=== PATIENT | female | born 2000 | race Caucasian/White ===

== ENCOUNTER 2020-01-17 07:51 | Day surgery (SDC) | payer OTHER, SELFPAY ==
[~2020-01-17] VITALS: Ht 157.5 cm; Wt 72.6 kg
[2020-01-17] MEDS ORDERED: fentaNYL citrate 0.05 MG/ML VIAL ONE ×2 (09:04→10:21)
[2020-01-17] MEDS ORDERED: LIDOCAINE 2% 100 MG/5 ML UJET TP ONE ×2 (09:04→10:21)
[2020-01-17] MEDS ORDERED: MIDAZOLAM 2 MG/2 ML VIAL ONE (10:21)
[2020-01-17] MEDS ORDERED: fentaNYL citrate 0.05 MG/ML VIAL IVP ONE ×2 (11:20→12:50)
== END 2020-01-17 11:50 | disposition home or self-care (01) ==
LOC: MDS 07:51 → MMU 07:52 → MDS 11:50
PROVIDERS: ATTEND Internal Medicine Gastroenterology
DX: K62.5 Hemorrhage of anus and rectum (principal); Z11.59 Encounter for screening for other viral diseases; K63.89 Other specified diseases of intestine; J45.909 Unspecified asthma, uncomplicated
CPT/HCPCS: 45380; 81025; 88305; J3010; U0003; J2250